=== PATIENT | male | born 1970 | race Caucasian/White ===

== ENCOUNTER 2022-06-22 13:11 | Emergency (ER) | payer BC, SELFPAY ==
[2022-06-22 13:12] VITALS: BP 149/80; PULSE 104; RESP 18; TEMP 36.1; O2SAT 98; BMI 23.0
--- NOTE | 2022-06-22 13:20 | NURSING ---
NO OLD EKGS
--- NOTE | 2022-06-22 13:36 | ED.VIS.CHEST ---
HPI History of Present Illness Chief Complaint: Palpitations Narrative Narrative: 51-year-old male here for palpitations. The patient states he felt like he was almost going to pass out prior to arrival. States this felt his heart was racing. States symptoms were intermittent, severe without alleviating factors. has a history of similar in which he goes into very fast heart rate and converted spontaneously prior to evaluation. States he had Holter monitor in the past that showed no concerning findings. Denies any bleeding diathesis. Denies any chest pain. Denies any shortness of breath. Denies any cough or fever. Denies any vomiting, diarrhea or other volume loss. The patient denies recent surgery in the last 4 weeks or immobilization in the last 3 days, denies previous diagnosis of DVT or PE, hemoptysis, unilateral leg swelling or malignancy with treatment the last 6 months. No estrogen use noted. [facility] Medical History (Updated 06/22/22 @ 17:[address] Nikolas Cobos DO) Migraines Home Medications NK 06/22/22 [History Last Taken Unknown] Allergy/AdvReac Type Severity Reaction Status Date / Time No Known Allergies Allergy Verified 06/22/22 13:14 no significant family history Surgical History S/P left knee arthroscopy no surgical history Social History Smoking Status: Never smoker ROS ROS ED ROS Narrative Constitutional: Denies fever HEENT: Denies sore throat Neck: Denies neck pain Cardiovascular: Denies chest pain, syncope, endorses palpitations Respiratory: Denies shortness of breath GI: Denies nausea vomiting or abdominal pain : Denies changes in urinary habits Musculoskeletal: Denies muscle or joint pain Neurologic: Denies numbness weakness or loss of sensation Skin denies rash EXAM Physical Exam Narrative Exam Narrative: Nursing triage notes reviewed, Vital signs reviewed Constitutional: please see mdm HENT: MMM Eyes: Pupils equal round and reactive to light, Extraocular muscles intact Neck: No stridor, no JVD, full neck ROM Lungs: Clear to auscultation, No wheezing or rales. No increased work of breathing, no conversational dyspnea, no accessory muscle use, no nasal flaring. No respiratory distress noted Heart: Regular rate and rhythm, No murmurs, No rubs and No gallops, 2+ distal pulses (radial, femoral, posterior tibial) in all extremities Abdomen: Soft, there is no tenderness, rigidity, rebound or guarding, no obvious peritoneal signs, no palpable pulsatile abdominal masses, no auscultated abdominal bruit : No CVAT Extremities: No edema Neuro: No focal neurological deficits, cranial nerves II through XII intact, 5/5 strength in all extremities. Intact sensation to light touch in all extremities, 2+ reflexes bilateral patella dens. Normal gait. No ataxia. Skin: No rash or lesions noted Const Vital Signs: 06/22/22 13:12 06/22/22 13:22 06/22/22 14:25 Temperature 97 F L Temperature Source Temporal Pulse Rate 104 H Respiratory Rate 18 Respiratory Effort Normal Non-Labored Respiratory Pattern Normal Blood Pressure 149/80 H Blood Pressure Mean 103 Pulse Ox 98 Oxygen Delivery Method Room Air Room Air 06/22/22 14:46 06/22/22 15:15 06/22/22 16:30 Temperature Temperature Source Pulse Rate 61 58 L 63 Respiratory Rate 16 14 15 Respiratory Effort Respiratory Pattern Blood Pressure 134/78 H 118/77 110/71 Blood Pressure Mean 96 90 84 Pulse Ox 99 98 98 Oxygen Delivery Method Room Air Room Air Room Air 06/22/22 17:05 Temperature Temperature Source Pulse Rate 64 Respiratory Rate 16 Respiratory Effort Respiratory Pattern Blood Pressure 122/80 H Blood Pressure Mean Pulse Ox 98 Oxygen Delivery Method MDM MDM MDM Narrative Medical decision making narrative: 51-year-old male here with concern for palpitations. He was initially hemodynamically stable, afebrile, nontoxic-appearing. Exam without focal cardiopulmonary abnormalities. No stigmata of VTE. Patient is asymptomatic here. Initial EKG showed normal sinus rhythm. No obvious arrhythmia, WPW, ARVD. Did obtain a broad lab and imaging work-up to further elucidate etiology of patient complaint specifically ruling out signs of anemia, electrolyte abnormalities, myocardial schema, pneumonia or other infectious etiologies. Images were remarkable for no evidence of myocardial ischemia, infectious etiologies, electrolyte abnormalities or anemia. Will await delta troponin. Lab Data Attestation: I reviewed the patient's lab results. Lab results narrative: CBC with no leukocytosis, no anemia no thrombocytopenia BMP without evidence of significant electrolyte abnormalities, no anion gap, no acute kidney injury. Troponin is negative, no evidence of myocardial ischemia Labs: Laboratory Results - last 24 hr 06/22/22 06/22/22 06/22/22 13:20 13:20 15:42 WBC 6.3 RBC 5.34 Hgb 16.8 H Hct 47.6 MCV 89.1 MCH 31.5 MCHC 35.3 RDW Std Deviation 40.4 RDW Coeff of Muna 12.4 Plt Count 259 MPV 9.5 Immature Gran % (Auto) 0.600 Neut % (Auto) 53.3 Lymph % (Auto) 29.9 Cuming % (Auto) 11.3 H Eos % (Auto) 4.1 Baso % (Auto) 0.8 Absolute Neuts (auto) 3.4 Absolute Lymphs (auto) 1.88 Nucleated RBC % 0 Sodium 137 Potassium 3.5 Chloride 105 Carbon Dioxide 25.0 Anion Gap 7 BUN 15 Creatinine 0.98 Estim Creat Clear Calc 95.08 Est GFR (MDRD) Af Amer 102 Est GFR (MDRD) Non-Af 85 BUN/Creatinine Ratio 15.3 Glucose 115 H Calcium 9.1 Troponin I High Sens 5 4 Radiography Diagnostic Testing: Clinical Impression(s) from Imaging Studies Chest X-Ray 06/22/22 14:06 IMPRESSION: Normal x-ray examination of the chest. Electronically Signed: Hadley Ware MD at 14:43 EDT , EKG Initial EKG: Comments: EKG with normal sinus rhythm, normal axis, normal intervals, no STEMI. No evidence of ARVD, no evidence of WPW, atrial fibrillation, atrial flutter or other arrhythmia. Discharge Plan Triage Chief Complaint: Palpitations ED Provider: Nikolas Cobos Dx/Rx/DC Orders Clinical Impression: Heart palpitations Instructions: ED Palpitations Prescriptions: No Action NK Referrals: Christopher Solano DO [Med Staff - Admission Nurse] - NOT,DEFINED [Non-Staff] - Activity Restrictions/Additional Instructions: Please follow-up with your primary care physician for outpatient event monitoring. This is usually in the form of a Holter monitor. Please return to the emergency department if your symptoms change or worsen. Disposition Disposition: Home, Self Care Discharge Date/Time: 06/22/22 17:07
--- NOTE | 2022-06-22 14:06 | RAD_ITS ---
STUDY: X-RAY CHEST REASON FOR EXAM: Male, 51 years old. Chest pain . Syncopal episodes. TECHNIQUE: Single AP portable view of the chest. COMPARISON: None. FINDINGS: EKG electrodes are seen. The lungs are clear and expanded. There is no demonstrated pleural abnormality. Normal size heart. Normal mediastinum and anjelica. Normal visualized pulmonary arteries. Normal visualized aortic arch and descending thoracic aorta. Normal visualized thoracic spine. Normal visualized ribs, clavicles, and shoulders. There is no demonstrated abnormality of the visualized soft tissue structures of the upper abdomen. RAD/Chest 1 View (Portable) IMPRESSION: Normal x-ray examination of the chest. Electronically Signed: Hadley Ware MD at 14:43 EDT ,
[2022-06-22] MEDS: 0.9% Normal Saline 1,000 ML 1000 ML IV (14:14)
[2022-06-22 14:16] LABS: Absolute Lymphocyte Count 1.88 X10^3/uL (0.83-4.51); Absolute Neutrophil Count 3.4 X10^3/uL (2.0-7.7); Basophil# 0.05 X10^3/uL; Basophil% 0.8 % (0-1); Eosinophil# 0.26 X10^3/uL; Eosinophils% 4.1 % (0-5); Hematocrit 47.6 % (40-54); Hemoglobin 16.8 g/dL (13.0-16.5); Lymphocyte # 1.88 X10^3/ul (0.83-4.51); Lymphocyte % 29.9 % (19-41); Mean Corp Hgb Conc 35.3 g/dL (32-36); Mean Corpuscular Hgb 31.5 pg (27.0-32.0); Mean Corpuscular Volume 89.1 fL (80-94); Mean Platelet Vol. 9.5 fl (6.2-12.0); Monocyte# 0.71 X10^3/uL; Monocyte% 11.3 % (0-10); NRBC Flagged by Analyzer 0 % (0-5); Neutrophil # 3.35 X10^3/uL (2.7-7.7); Neutrophil % 53.3 % (47-70); Platelet Count 259 K/mm3 (150-450); RBC Distribution Width CV 12.4 % (11.6-14.6); RBC Distribution Width SD 40.4 fl (35.1-43.9); Red Blood Count 5.34 M/mm3 (4.6-6.2); White Blood Count 6.3 K/mm3 (4.4-11.0)
[2022-06-22 14:33] LABS: Anion Gap 7 (5-15); BUN 15 mg/dL (7-18); BUN/Creat Ratio 15.3 RATIO (10-20); Calcium,Total 9.1 mg/dL (8.5-10.1); Chloride 105 mmol/L (98-107); Creatinine, Serum 0.98 mg/dL (0.70-1.30); EST Glomerular Filtration Rate 85 mL/min (>60); Est Glom Filt Rate - Afr Amer 102 mL/min (>60); Estimated Creatinine Clearance 95.08 ml/min; Glucose 115 mg/dL (74-106); Potassium 3.5 mmol/L (3.5-5.1); Sodium Level 137 mmol/L (136-145); Troponin-I HS (w/2H Reflex) 5 pg/mL (3.0-78.0)
[2022-06-22 14:46] VITALS: BP 134/78; PULSE 61; RESP 16; O2SAT 99
[2022-06-22 15:15] VITALS: BP 118/77; PULSE 58; RESP 14; O2SAT 98
[2022-06-22 16:12] LABS: Reflex Troponin-HS? (from REC) Y
[2022-06-22 16:30] VITALS: BP 110/71; PULSE 63; RESP 15; O2SAT 98
[2022-06-22 16:37] LABS: Troponin-I HS 4 pg/mL (3.0-78.0)
[2022-06-22 17:05] VITALS: BP 122/80; PULSE 64; RESP 16; O2SAT 98
== END 2022-06-22 17:07 | disposition home or self-care (01) ==
PROVIDERS: Emergency Provider Emergency Medicine; Visit Provider Emergency Medicine
DX: R00.2 Palpitations (principal)
CPT/HCPCS: 71045; 80048; 84484; 85025; 93005; 96360; 99285; J7030; A4216